=== PATIENT | female | born 1970 | race Two or more races ===

== ENCOUNTER 2020-03-30 12:03 | Outpatient (CLI) | payer OTHER | END 2020-03-30 15:04 | disposition home or self-care (01) | LOC: OFIC 805 12:03 | PROVIDERS: ATTEND Otolaryngology Otology & Neurotology | DX: H61.321 Acquired stenosis of right external ear canal secondary to inflammation and infection (principal); C44.202 Unspecified malignant neoplasm of skin of right ear and external auricular canal; H61.111 Acquired deformity of pinna, right ear ==

== ENCOUNTER 2020-04-13 09:00 | Day surgery (SDC) | payer OTHER ==
[2020-04-13] MEDS ORDERED: BACTRIM DS TAB1 EACH PO (15:00)
[2020-04-13] MEDS ORDERED: CILOXAN5 ML OTIC (15:00)
== END 2020-04-13 17:15 | disposition home or self-care (01) ==
LOC: CIR.AMB 09:00
PROVIDERS: ATTEND Otolaryngology Otology & Neurotology
DX: C44.212 Basal cell carcinoma of skin of right ear and external auricular canal (principal); H61.321 Acquired stenosis of right external ear canal secondary to inflammation and infection; H61.111 Acquired deformity of pinna, right ear; Z20.822 Contact with and (suspected) exposure to COVID-19

== ENCOUNTER 2020-04-20 11:35 | Outpatient (CLI) | payer OTHER ==
[~2020-04-20 11:35] MED LIST: BACTRIM DS TAB1 EACH PO; CILOXAN5 ML OTIC
== END 2020-04-20 15:57 | disposition home or self-care (01) ==
LOC: OFIC 805 11:35
PROVIDERS: ATTEND Otolaryngology Otology & Neurotology
DX: H61.321 Acquired stenosis of right external ear canal secondary to inflammation and infection (principal); C44.292 Other specified malignant neoplasm of skin of right ear and external auricular canal; H61.111 Acquired deformity of pinna, right ear

== ENCOUNTER 2020-05-25 10:33 | Outpatient (CLI) | payer OTHER | END 2020-05-25 13:41 | disposition home or self-care (01) | LOC: OFIC 805 10:33 | PROVIDERS: ATTEND Otolaryngology Otology & Neurotology | DX: H61.321 Acquired stenosis of right external ear canal secondary to inflammation and infection (principal); C44.202 Unspecified malignant neoplasm of skin of right ear and external auricular canal; H61.111 Acquired deformity of pinna, right ear; D04.21 Carcinoma in situ of skin of right ear and external auricular canal ==

== ENCOUNTER 2020-07-26 17:22 | Emergency (ER) | payer OTHER ==
[~2020-07-26] VITALS: Ht 162.6 cm; Wt 59.0 kg
[2020-07-27] MEDS ORDERED: CLEOCIN HCL300 MG PO (08:09)
== END 2020-07-27 08:28 | disposition home or self-care (01) ==
LOC: ER 17:22
DX: H60.01 Abscess of right external ear (principal); C44.212 Basal cell carcinoma of skin of right ear and external auricular canal; H61.321 Acquired stenosis of right external ear canal secondary to inflammation and infection

== ENCOUNTER 2020-08-01 15:07 | Outpatient (CLI) | payer OTHER ==
[~2020-08-01 15:07] MED LIST changes: +CLEOCIN HCL300 MG PO
== END 2020-08-01 16:32 | disposition home or self-care (01) ==
LOC: OFIC 805 15:07
PROVIDERS: ATTEND Otolaryngology Otology & Neurotology
DX: H61.321 Acquired stenosis of right external ear canal secondary to inflammation and infection (principal); D04.21 Carcinoma in situ of skin of right ear and external auricular canal; H61.111 Acquired deformity of pinna, right ear; C44.81 Basal cell carcinoma of overlapping sites of skin

== ENCOUNTER 2020-09-20 09:20 | Outpatient (CLI) | payer OTHER | END 2020-09-20 09:42 | disposition home or self-care (01) | LOC: SONOGRAMA 09:20 | PROVIDERS: ATTEND Pathology Anatomic Pathology & Clinical Pathology | DX: R59.0 Localized enlarged lymph nodes (principal) ==

== ENCOUNTER 2020-10-12 08:42 | Day surgery (SDC) | payer OTHER ==
[2020-10-12] MEDS ORDERED: LEVOFLOXACIN500 MG PO (16:16)
[2020-10-12] MEDS ORDERED: IBU800 MG PO (16:17)
== END 2020-10-12 19:00 | disposition home or self-care (01) ==
LOC: SURH 08:42 → CIR.AMB 08:42 → O/R 08:42 → CIR.AMB 19:00
PROVIDERS: ATTEND Otolaryngology Otology & Neurotology
DX: C44.212 Basal cell carcinoma of skin of right ear and external auricular canal (principal); Z20.822 Contact with and (suspected) exposure to COVID-19

== ENCOUNTER → 2021-03-11 | Outpatient (CLI) | payer OTHER ==
[~2021-03-11] MED LIST changes: +IBU800 MG PO; +LEVOFLOXACIN500 MG PO
== END | disposition home or self-care (01) ==
LOC: RAD 14:39
PROVIDERS: ATTEND Internal Medicine Hematology & Oncology
DX: M25.511 Pain in right shoulder (principal)

== ENCOUNTER 2024-10-14 06:35 | Day surgery (SDC) | payer OTHER ==
[2024-10-07 10:01] VITALS: BP 140/90
[2024-10-07 10:43] LABS: BASO % 0.6 % (0.1-1.2); EOS # 0.07 (0.04-0.54); EOS % 0.7 % (0.7-7.0); LYMPH # 4.63 (1.18-3.74); LYMPH % 45.3 % (19.3-53.1); MEAN PLATELET VOLUME 8.80 fl (9.4-12.4); MONO # 0.68 (0.24-0.82); MONO % 6.7 % (4.7-12.5); NEUT # 4.75 (1.56-6.13); NEUT % 46.5 % (34.0-71.1); RED CELL DISTRIBUTION WIDTH 12.4 % (11.6-14.4)
[2024-10-07 10:50] LABS: URINE APPEARANCE Clear; URINE BILIRRUBIN Negative (NEGATIVE); URINE BLOOD Trace; URINE COLOR Yellow; URINE GLUCOSE Negative (NEGATIVE); URINE KETONE Trace (NEGATIVE); URINE LEUKOCYTE Negative; URINE NITRATE Negative; URINE PROTEIN Negative (NEGATIVE); URINE UROBILINOGEN 0.2 E.U./dl
[2024-10-07 10:55] LABS: URINE BACTERIA 338.3 uL (0.0-1933); URINE EPITHELIAL CELLS 24.4 uL (0.0-38.8); URINE RBC 25.5 uL (0.0-20.8); URINE WBC 5.8 uL (0.0-23.2)
[2024-10-07 10:59] LABS: URINE CAST 0.14 uL (0.0-1.40)
[2024-10-07 11:10] LABS: BUN CREA RATIO 21.0 (7.0-25.0); CREATININE SERUM 0.58 mg/dL (0.55-1.02); GFR 109.17; GLUCOSE FASTING 94.0 mg/dL (65-100); OSMOLALITY SERUM 281.0 MOSM/KG (275-295)
[2024-10-07 11:13] LABS: INR 1.0
[~2024-10-14] VITALS: Ht 162.6 cm; Wt 52.2 kg
[2024-10-14] MEDS ORDERED: POVIDONE-IODINE 118 ML BOTT TOP ONE (15:00)
[2024-10-14] MEDS ORDERED: LIDOCAINE HCL 1%/EPINEPHRINE 20ML VIAL IJ ONE (15:00)
[2024-10-14] MEDS ORDERED: CEFAZOLIN SODIUM 1,000 MG VIAL IV ONE (15:00)
[2024-10-14] MEDS ORDERED: CEPHALEXIN500 M1 PO (15:51)
[2024-10-14] MEDS ORDERED: MORPHINE SULFATE 2 MG/ML CARTRIDGE IV ONE (17:50)
== END 2024-10-14 19:15 | disposition home or self-care (01) ==
LOC: CIR.AMB 06:35
PROVIDERS: ATTEND Otolaryngology Otology & Neurotology
DX: C30.1 Malignant neoplasm of middle ear (principal)